=== PATIENT | male | born 1970 | race American Indian/Alaskan Native ===

== ENCOUNTER 2018-01-15 11:52 | Emergency (ER) | payer BC, OTHER ==
[2018-01-15 12:14] VITALS: BP 118/85
--- NOTE | 2018-01-15 13:42 | XRay Report ---
Chest 2 views: History: Left-sided chest pain and rib pain. Findings: Normal cardiomediastinal silhouette. Trachea is midline. No consolidation, pneumothorax or pleural effusion. Impression: No acute cardiopulmonary findings.
[2018-01-15] MEDS ORDERED: TORADOL IM ONE (14:02)
[2018-01-15] MEDS ORDERED: NORCO 5/325 PO ONE (14:02)
--- NOTE | 2018-01-15 14:19 | Emergency Department Report ---
HPI - General Chief Complaint: Chest Pain Time Seen by Provider: 01/15/18 13:37 - HPI HPI: The patient's for 47-year-old male presents for evaluation of chest pain. The patient reports chest pain since awakening this morning, greater than 6 hours prior to evaluation, left sided and location, sharp in quality, exacerbated with movement or coughing, constant since onset. 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 The patient denies fever, trauma to the chest wall, neck pain, parasthesias, dyspnea, hemoptysis, palpitations, dizziness, syncope, unilateral leg swelling, calf muscle pain. Patient also denies cocaine or other stimulant use, history of DVT or PE, recent immobilization, or history of cancer. ED Past Medical Hx - Past Medical History Hx Heart Attack/AMI: Yes Additional medical history: Heatstroke - Surgical History Additional Surgical History: SALIVARY GLAND REMOVED? - Social History Smoking Status: Current Every Day Smoker Substance Use Type: Alcohol, Marijuana - Medications Home Medications: Home Medications Medication Instructions Recorded Confirmed Last Taken Type Amoxicillin/Potassium Clav 1,000 mg PO BID 06/24/15 06/24/15 06/23/15 History [Augmentin XR 1000MG 12HR] Oxycodone HCl/Acetaminophen 7.5 mg PO Q6HR PRN 06/24/15 06/24/15 06/23/15 History [Percocet 7.5/325 mg] Amoxicillin/K Clav Tab [Augmentin 1 each PO Q12HR #24 tablet 06/27/15 Unknown Rx 875MG TAB] HYDROcodone/APAP 5-325 [[place] 2 each PO Q6H PRN #40 tablet 06/27/15 Unknown Rx 5-325 mg TAB] chlordiazePOXIDE [Librium] 25 mg PO Q8HR #30 capsule 06/27/15 Unknown Rx Ibuprofen [Motrin] 800 mg PO Q8HR PRN #15 tablet 01/15/18 Unknown Rx traMADol [Ultram 50 MG tab] 50 mg PO Q6HR PRN #15 tablet 01/15/18 Unknown Rx ED Review of Systems ROS: Stated complaint: CP Other details as noted in HPI Constitutional: denies: fever ENT: denies: throat or neck pain Respiratory: denies: cough, shortness of breath Cardiovascular: reports chest pain Endocrine: denies unexplained weight loss or gain Gastrointestinal: denies: abdominal pain, nausea Genitourinary: denies: dysuria Musculoskeletal: denies: leg swelling Skin: denies: rash Neurological: denies: headache Hematological/Lymphatic: denies: easy bleeding or easy bruising Psych: denies sadness or hopelessness Physical Exam - Physical Exam Vital Signs: Vital Signs 01/15/18 12:11 Temperature 98.6 F Pulse Rate 72 Respiratory 17 Rate Blood Pressure 118/85 O2 Sat by Pulse 100 Oximetry Physical Exam: General: well-nourished, well-developed, no acute distress Head: Normocephalic, atraumatic Eyes: normal sclera ENT: Mucous membranes are pink and moist Neck: trachea midline, neck supple, No neck stiffness, no cervical adenopathy Respiratory: Breath sounds equal bilaterally, no wheezing, rales, or rhonchi Cardio: S1 and S2 present, no murmurs, rubs, gallops, capillary refill is brisk Abdomen: Normoactive bowel sounds, soft abdomen, no rigidity, no guarding or rebound tenderness Chest WALL/Back: Left lower intercostal tenderness present to palpation of intercostal spaces 4 through 6 at the anterior axillary line, pain reproduced with internal rotation and adduction of the left arm at the shoulder joint Musc: No pitting edema Skin: No rash Neuro: no facial drooping, normal speech Psych: Normal affect ED Course Vital Signs 01/15/18 12:11 Temperature 98.6 F Pulse Rate 72 Respiratory 17 Rate Blood Pressure 118/85 O2 Sat by Pulse 100 Oximetry ED Medical Decision Making - Medical Decision Making The patient was seen and examined by myself. The patient is placed on a monitor worker and continuous pulse ox. On initial evaluation, the patient was found to be in no distress. EKG was negative for findings suggestive of acute cardiac infarct. The patient given pain medicine. Chest x-ray is negative for pneumothorax, focal consolidation, pulmonary vascular congestion, pleural effusion, or other obvious acute cardiopulmonary disease process. The patient was reevaluated and reported that their symptoms were markedly improved. As the patient has a TRACI risk score less than 2, and a well's score less than 2, the patient is at low risk of ACS or pulmonary emboli etiology of their symptoms. The patient is stable for discharge with outpatient follow-up. The patient is given follow-up and return instructions. The patient expressed understanding and agreed with the plan. The patient is discharged in stable condition. Critical care attestation.: If time is entered above; I have spent that time in minutes in the direct care of this critically ill patient, excluding procedure time. ED Disposition Clinical Impression: Acute chest pain, Acute chest wall pain Disposition: TO HOME OR SELFCARE Is pt being admited?: No Does the pt Need Aspirin: No Condition: Stable Instructions: Chest Pain (ED), Musculoskeletal Pain (ED) Referrals: PRIMARY CARE,MD [Primary Care Provider] - 3-5 Days Time of Disposition: 14:12 Heart Score - HEART Score History: Slightly suspicious EKG: Normal Age: 45-65 Risk factors: No known risk factors Troponin: < normal limit HEART Score: 1
== END 2018-01-15 14:32 | disposition home or self-care (01) ==
LOC: ED 11:52
DX: R07.89 Other chest pain (principal); F17.200 Nicotine dependence, unspecified, uncomplicated
CPT/HCPCS: 71046; 93005; 93010; 96372; 99283; J1885